=== PATIENT | male | born 1980 | race Hispanic/Latino ===

== ENCOUNTER 2019-04-19 14:39 | Emergency (ER) | payer OTHER, SELFPAY | END 2019-04-19 17:07 | disposition home or self-care (01) | LOC: EDH 14:39 | DX: S62.321A Displaced fracture of shaft of second metacarpal bone, left hand, initial encounter for closed fracture (principal); W22.8XXA Striking against or struck by other objects, initial encounter; Y93.89 Activity, other specified; Y92.89 Other specified places as the place of occurrence of the external cause; Y99.8 Other external cause status | CPT/HCPCS: 29125; 73130 ==

== ENCOUNTER 2019-11-03 10:32 | Emergency (ER) | payer OTHER, SELFPAY | END 2019-11-03 13:21 | disposition home or self-care (01) | LOC: EDH 10:32 → EEVIPCON 10:32 → EDH 13:21 | DX: F10.129 Alcohol abuse with intoxication, unspecified (principal) ==

== ENCOUNTER 2020-05-17 14:01 | Emergency (ER) | payer SELFPAY ==
[2020-05-17 14:35] LABS: APPEARANCE,URINE Clear (CLEAR); BILIRUBIN,URINE Negative (NEGATIVE); COLOR,URINE Yellow (YELLOW); GLUCOSE, URINE (UA) Negative (NEGATIVE); KETONES,URINE Negative (NEGATIVE); LEUKOCYTE ESTERASE ,URINE Negative (NEGATIVE); NITRATE,URINE Negative (NEGATIVE); OCCULT BLOOD,URINE Negative (NEGATIVE); PH,URINE 7.5 (5.0-8.0); PROTEIN,URINE Negative (NEGATIVE); UROBILINOGEN,URINE 0.2 mg/dL (0.2-1.0)
[2020-05-17] MEDS ORDERED: HYDROCODONE/ACETAMINOPHEN 10/325 MG TAB ONE (15:42)
[2020-05-17] MEDS ORDERED: ONDANSETRON ODT 4 MG TAB ONE (15:42)
[2020-05-17 16:30] LABS: BASOPHILS % (AUTO) 0.6 % (0.0-5.0); EOSINOPHILS % (AUTO) 4.4 % (0.0-8.0); HEMATOCRIT 40.3 % (42-54); LYMPHOCYTES % (AUTO) 19.4 % (21.0-51.0); MEAN CORPUSCULAR HEMOGLOBIN 30.8 pg (27.0-33.0); MEAN CORPUSCULAR HGB CONC 34.5 g/dL (32.0-36.0); MEAN CORPUSCULAR VOLUME 89.4 fL (79-99); MONOCYTES % (AUTO) 11.5 % (3.0-13.0); NEUTROPHILS % (AUTO) 63.8 % (40.0-77.0); PLATELET COUNT (AUTO) 224 K/uL (130-400); RED BLOOD CELL COUNT(AUTO) 4.51 MIL/uL (4.50-6.20); RED CELL DISTRIBUTION WIDTH 11.8 % (11.0-15.5); WHITE BLOOD COUNT (AUTO) 7.8 K/uL (4.8-10.8)
[2020-05-17 16:47] LABS: ALBUMIN 3.6 g/dL (3.5-5.0); BILIRUBIN,TOTAL 0.2 mg/dL (0.2-1.0); CREATININE 0.9 mg/dL (0.5-1.5); POTASSIUM 4.4 mmol/L (3.5-5.1)
== END 2020-05-17 17:15 | disposition home or self-care (01) ==
LOC: EDH 14:01
DX: K40.90 Unilateral inguinal hernia, without obstruction or gangrene, not specified as recurrent (principal); Z72.0 Tobacco use
CPT/HCPCS: 36415; 76870; 80053; 81003; 83605; 85025

== ENCOUNTER 2020-05-18 16:12 | Emergency (ER) | payer OTHER | END 2020-05-18 17:30 | disposition home or self-care (01) | LOC: EDH 16:12 | DX: K40.90 Unilateral inguinal hernia, without obstruction or gangrene, not specified as recurrent (principal) | CPT/HCPCS: 99281 ==

== ENCOUNTER 2021-03-28 12:02 | Emergency (ER) | payer SELFPAY ==
[~2021-03-28] VITALS: Ht 167.6 cm; Wt 105.7 kg
[2021-03-28] MEDS ORDERED: KETOROLAC 60 MG VIAL (30MG/ML) ONE (12:46)
[2021-03-28 13:06] LABS: APPEARANCE,URINE Clear (CLEAR); BILIRUBIN,URINE Small (NEGATIVE); COLOR,URINE Dark Yellow (YELLOW); GLUCOSE, URINE (UA) Negative (NEGATIVE); KETONES,URINE Negative (NEGATIVE); LEUKOCYTE ESTERASE ,URINE Negative (NEGATIVE); NITRATE,URINE Negative (NEGATIVE); OCCULT BLOOD,URINE Negative (NEGATIVE); PROTEIN,URINE Trace mg/dL (NEGATIVE)
[2021-03-28 13:36] LABS: BACTERIA,URINE Few /HPF (None Seen); MUCUS,URINE Many LPF (None Seen); RBC,URINE None Seen /HPF (0-1); SQUAMOUS EPITHELIAL CELL,UR 0-2 /HPF (0-2); WBC,URINE None Seen /HPF (0-1)
[2021-03-28] MEDS ORDERED: IBUP-2070 PO (14:33)
[2021-03-28 14:52] VITALS: BP 145/87
== END 2021-03-28 14:53 | disposition home or self-care (01) ==
LOC: EDH 12:02
DX: M62.830 Muscle spasm of back (principal); Z79.1 Long term (current) use of non-steroidal anti-inflammatories (NSAID)
CPT/HCPCS: 81001; 96372; 99283; J1885

== ENCOUNTER 2022-01-24 19:48 | Emergency (ER) | payer OTHER ==
[~2022-01-24] VITALS: Ht 167.6 cm; Wt 103.4 kg
[~2022-01-24 19:48] MED LIST: IBUP-2070 PO; MECL-226 PO; ONDA4TAB10 PO
[2022-01-24 21:03] VITALS: BP 159/99
[2022-01-24] MEDS ORDERED: AMOX1TAB16 PO (22:19)
[2022-01-24] MEDS ORDERED: IBUP-2070 PO (22:19)
[2022-01-24] MEDS ORDERED: LIDOCAINE HCL MPF 1% 5ML VIAL ONE (22:21)
[2022-01-24] MEDS ORDERED: KETOROLAC 30MG VIAL (30MG/ML) IM ONE (22:30)
[2022-01-24] MEDS ORDERED: TETANUS/DIPHTHERIA TOXOID [ADULT] 0.5 ML VIAL IM ONE (22:30)
[2022-01-24] MEDS ORDERED: AMOX/CLAV 875/125MG TAB PO ONE (22:30)
== END 2022-01-24 22:56 | disposition home or self-care (01) ==
LOC: EDH 19:48
DX: S51.811A Laceration without foreign body of right forearm, initial encounter (principal); Z79.1 Long term (current) use of non-steroidal anti-inflammatories (NSAID); W54.0XXA Bitten by dog, initial encounter; Y93.89 Activity, other specified; Y92.89 Other specified places as the place of occurrence of the external cause; Y99.8 Other external cause status
CPT/HCPCS: 12002; 73090; 90471; 90714; 96372; 99284; J1885; J3490

== ENCOUNTER 2023-02-18 19:45 | Emergency (ER) | payer BC ==
[~2023-02-18] VITALS: Ht 167.6 cm; Wt 106.6 kg
[~2023-02-18 19:45] MED LIST changes: +AMOX1TAB16 PO
[2023-02-18 21:09] VITALS: BP 154/111
== END 2023-02-18 21:24 | disposition home or self-care (01) ==
LOC: EDH 19:45
DX: F41.9 Anxiety disorder, unspecified (principal); G89.29 Other chronic pain